=== PATIENT | male | born 1960 | race Caucasian/White ===

== ENCOUNTER 2024-04-23 20:43 | Emergency (ER) | payer OTHER ==
[~2024-04-23] VITALS: Ht 185.4 cm; Wt 82.0 kg
[2024-04-23 21:06] VITALS: O2SAT 100
[2024-04-23] MEDS: KETOROLAC 30MG/ML VIAL IV STA (21:17)
[2024-04-23 22:29] LABS: BASOPHILS % 0.3 % (0.0-2.0); EOSINOPHILS % 0.2 % (0.0-5.0); HEMATOCRIT. 41.7 % (42.0-52.0); HEMOGLOBIN. 14.1 g/dL (14.0-18.0); LYMPHOCYTES % 7.9 % (20.0-50.0); MEAN CORPUSCULAR HEMOGLOBIN 32.3 pg (28.0-32.0); MEAN CORPUSCULAR HGB CONC 33.9 g/dL (31.0-37.0); MEAN CORPUSCULAR VOLUME 95.3 fL (80.0-94.0); MEAN PLATELET VOLUME 8.6 fl (7.4-10.4); MONOCYTES % 4.3 % (2.0-8.0); NEUTROPHILS % 87.3 % (40.0-76.0); PLATELET 176 x1000/uL (130-400); RED BLOOD CELL COUNT 4.38 mill/uL (4.7-6.1); RED CELL DISTRIBUTION WIDTH 13.2 % (11.6-14.6); WHITE BLOOD COUNT 10.3 x1000/uL (4.5-11.0)
[2024-04-23 22:32] LABS: CHLORIDE 104 mEq/L (98-107); POTASSIUM 4.1 mEq/L (3.5-5.1); SODIUM 140 mEq/L (136-145)
[2024-04-23 22:33] LABS: CALCIUM 10.3 mg/dL (8.7-10.4); CARBON DIOXIDE 21 mEq/L (21-32)
[2024-04-23 22:38] LABS: CREATININE 1.7 mg/dL (0.6-1.3); GLUCOSE 216 mg/dL (70-105); UREA NITROGEN BLOOD 36 mg/dL (9-23)
[2024-04-23 22:40] LABS: ALANINE AMINOTRANSFERASE 23 IU/L (10-49); ALBUMIN 4.7 g/dL (3.2-4.8); ASPARTATE AMINOTRANSFERASE 23 IU/L (<34); BILIRUBIN DIRECT 0.5 mg/dL (<=3.0); BILIRUBIN TOTAL 1.7 mg/dL (0.1-1.0)
[2024-04-23 22:41] LABS: PROTEIN TOTAL 7.7 g/dL (6.0-8.3)
[2024-04-23 22:43] LABS: INR 0.9; PROTHROMBIN TIME 10.2 sec (9.6-11.0)
[2024-04-23 23:06] LABS: CLARITY URINE CLEAR (CLEAR); COLOR URINE YELLOW (YELLOW); GLUCOSE URINE 3+ (NEGATIVE); KETONES URINE 3+ (NEGATIVE); LEUKOCYTE ESTERASE URINE NEGATIVE (NEGATIVE); NITRITE URINE NEGATIVE (NEGATIVE); OCCULT BLOOD URINE NEGATIVE (NEGATIVE); PH URINE 5.5 (4.5-8.0); PROTEIN URINE NEGATIVE (NEGATIVE); SPECIFIC GRAVITY URINE 1.041 (1.005-1.030); UROBILINOGEN URINE 0.2 E.U./dL (0.2-1.0)
[2024-04-23] MEDS: ONDANSETRON HCL 4MG/2ML INJ ONE (23:06)
[2024-04-23] MEDS: ONDANSETRON HCL 4MG/2ML INJ IV STA ×2 (23:12→23:56)
[2024-04-23 23:14] LABS: WBC URINE NONE SEEN /hpf (0-2)
[2024-04-23 23:15] LABS: BACTERIA URINE NONE SEEN; SQUAMOUS EPITHELIAL CELL URINE RARE /lpf (RARE/1+)
[2024-04-24] MEDS: MORPHINE SULFATE 4 MG/ML INJ (FOR IV/IM USE) IV STA (00:10)
[2024-04-24] MEDS: TAMSULOSIN HCL 0.4MG SR CAPSULE PO ONE (00:53)
[2024-04-24] MEDS ORDERED: T3 PO (03:42)
[2024-04-24] MEDS ORDERED: TAMS-11 MT (03:42)
[2024-04-24] MEDS ORDERED: IBUP-2029 MT (03:42)
[2024-04-24 04:00] VITALS: BP 116/57; PULSE 91; RESP 20; TEMP 36.9; O2SAT 99
[2024-04-24] MEDS ORDERED: IOHEXOL-300 100 ML BOTTLE ONE (06:42)
== END 2024-04-24 04:15 | disposition home or self-care (01) ==
LOC: ER 20:43
DX: N23 Unspecified renal colic (principal); E11.9 Type 2 diabetes mellitus without complications; R11.2 Nausea with vomiting, unspecified; I10 Essential (primary) hypertension; E78.00 Pure hypercholesterolemia, unspecified; Z87.442 Personal history of urinary calculi; Z79.899 Other long term (current) drug therapy
CPT/HCPCS: 99285; 74176; 96374; 96375 ×2; 80076; 80048; 81003; 83690; 85025; 85610; 36415; 74177; J2405 ×2; Q9967; J2270